=== PATIENT | female | born 1990 | race Caucasian/White ===

== ENCOUNTER → 2018-03-06 | Outpatient (CLI) | payer OTHER ==
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
== END | disposition home or self-care (01) ==
LOC: RADXRMAIN 11:52
PROVIDERS: ATTEND Emergency Medicine
DX: S60.00XA Contusion of unspecified finger without damage to nail, initial encounter (principal)

== ENCOUNTER 2021-12-02 13:05 | Emergency (ER) | payer OTHER, BC ==
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
[2021-12-02 14:38] VITALS: BP 143/85; PULSE 122; RESP 18; TEMP 98.2
[2021-12-02 15:36] LABS: Basophils # (A) 0.1 k/uL (0-0.2); Basophils % (A) 1 %; Eosinophils # (A) 0.1 k/uL (0-0.7); Eosinophils % (A) 1 %; HCT 43.7 % (34.0-46.0); HGB 14.9 gm/dL (11.4-16.0); Lymphocytes # (A) 1.6 k/uL (1.0-4.8); Lymphocytes % (A) 11 %; MCH 31.3 pg (25.0-35.0); MCHC 34.2 g/dL (31.0-37.0); MCV 91.6 fL (80.0-100.0); Mean Platelet Volume 7.1; Monocytes # (A) 0.5 k/uL (0-1.0); Monocytes % (A) 3 %; Neutrophils # (A) 11.5 k/uL (1.3-7.7); Neutrophils % (A) 84 %; Platelet Count 259 k/uL (150-450); RBC 4.77 m/uL (3.80-5.40); RDW 12.2 % (11.5-15.5); WBC 13.7 k/uL (3.8-10.6)
--- NOTE | 2021-12-02 15:43 | XR ---
EXAMINATION TYPE: XR pelvis AP view DATE OF EXAM: 12/02/2021 CLINICAL HISTORY: pain TECHNIQUE: Single view the pelvis is submitted. FINDINGS: No evidence for fracture, dislocation or bony lesion. Joint spaces are well-preserved. S I joints appear symmetric. IMPRESSION: 1. No acute fracture or dislocation seen. ICD 10 NO FRACTURE, INITIAL EVALUATION
--- NOTE | 2021-12-02 15:43 | XR ---
EXAMINATION TYPE: XR chest 1V portable DATE OF EXAM: 12/02/2021 COMPARISON: NONE HISTORY: Chest pain TECHNIQUE: Single frontal view of the chest is obtained. FINDINGS: There is no focal air space opacity, pleural effusion, or pneumothorax seen. The cardiac silhouette size is within normal limits. The osseous structures are intact. IMPRESSION: 1. No acute process.
[2021-12-02 15:46] LABS: ALT 42 U/L (4-34); AST 44 U/L (14-36); African American GFR (CKD) >90 (>60 ml/min/1.73 sqM); Alcohol <10 mg/dL; Alkaline Phosphatase 66 U/L (38-126); Anion Gap 11 mmol/L; Blood Urea Nitrogen 7 mg/dL (7-17); Calcium 9.5 mg/dL (8.4-10.2); Carbon Dioxide 25 mmol/L (22-30); Chloride 107 mmol/L (98-107); Glucose 95 mg/dL (74-99); Non-African American GFR(CKD) >90 (>60 ml/min/1.73 sqM); Potassium 3.8 mmol/L (3.5-5.1); Sodium 143 mmol/L (137-145); Total Bilirubin 0.7 mg/dL (0.2-1.3); Total Protein 8.4 g/dL (6.3-8.2)
[2021-12-02 15:47] LABS: INR 0.9 (<1.2); Partial Thromboplastin Time 23.5 sec (22.0-30.0); Prothrombin Time 10.3 sec (9.0-12.0)
[2021-12-02 15:50] LABS: Appearance,Urine Clear (Clear); Bilirubin,Urine Negative (Negative); Blood,Urine Negative (Negative); Color,Urine Colorless; Glucose,Urine (UA) Negative (Negative); Ketones,Urine Negative (Negative); Leukocyte Esterase,Urine Negative (Negative); Nitrite,Urine Negative (Negative); Protein,Urine Negative (Negative); Specific Gravity,Urine 1.002 (1.001-1.035); Urobilinogen,Urine <2.0 mg/dL (<2.0)
[2021-12-02 16:00] LABS: Amphetamine Screen,Urine Not Detected (NotDetected); Barbiturate Screen,Urine Not Detected (NotDetected); Benzodiazepines Screen,Urine Not Detected (NotDetected); Cocaine Screen,Urine Not Detected (NotDetected); Methadone Screen, Urine Not Detected (NotDetected); Opiate Screen,Urine Not Detected (NotDetected); Oxycodone Screen, Urine Not Detected (NotDetected); Phencyclidine Screen,Urine Not Detected (NotDetected); Tricyclic Antidepressant,Urine Not Detected (NotDetected); Urn Cannabinoid Scrn Not Detected (NotDetected)
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
== END 2021-12-02 16:57 | disposition home or self-care (01) ==
LOC: EC 13:05
DX: R10.30 Lower abdominal pain, unspecified (principal); V89.2XXA Person injured in unspecified motor-vehicle accident, traffic, initial encounter
CPT/HCPCS: 36415; 71045; 72170; 80053; 80306; 80320; 81003; 84484; 85025; 85610; 85730; 86850; 86900; 86901

== ENCOUNTER 2021-12-31 02:22 | Emergency (ER) | payer BC ==
[2021-12-31 02:41] VITALS: TEMP 97.9
--- NOTE | 2021-12-31 04:27 | ED ---
GI Bleed HPI - General Chief complaint: GI Bleed Stated complaint: bleeding Time Seen by Provider: 12/31/21 03:51 Source: patient Mode of arrival: ambulatory - History of Present Illness Initial comments: This patient is a 31-year-old woman who presents to have reevaluation of a hemorrhoid that has been bleeding. The patient states she was seen at an urgent care earlier and was given medication including steroid. She states that the hemorrhoid continued to bleed and she was told that if there was additional bleeding she should be reevaluated. She is not having much in way of pain. She denies symptoms of anemia. There is no abdominal pain. MD complaint: other -: hour(s) (Hemorrhoid) Quality: painless Consistency: intermittent Improves with: none Worsens with: none Context: hemorrhoids Associated Symptoms: denies other symptoms - Related Data Previous Rx's Medication Instructions Recorded Hydrocortisone Pr Cream 1 applic RECTAL BID #28 gm 12/31/21 [Proctosol-Hc 2.5%] Allergies Allergy/AdvReac Type Severity Reaction Status Date / Time No Known Allergies Allergy Verified 12/31/21 02:41 Review of Systems ROS Statement: Those systems with pertinent positive or pertinent negative responses have been documented in the HPI. ROS Other: All systems not noted in ROS Statement are negative. Constitutional: Denies: fever, chills Respiratory: Denies: cough, dyspnea Cardiovascular: Denies: chest pain, palpitations, edema Gastrointestinal: Denies: abdominal pain, vomiting, diarrhea Past Medical History Past Medical History: No Reported History History of Any Multi-Drug Resistant Organisms: None Reported Additional Past Surgical History / Comment(s): ganglion cyst removed Past Psychological History: No Psychological Hx Reported Smoking Status: Never smoker Past Alcohol Use History: None Reported Past Drug Use History: None Reported General Exam General appearance: alert, in no apparent distress Head exam: Present: atraumatic, normocephalic Eye exam: Present: normal appearance. Absent: scleral icterus, conjunctival injection Respiratory exam: Present: normal lung sounds bilaterally. Absent: respiratory distress, wheezes, rales, rhonchi, stridor Cardiovascular Exam: Present: regular rate, normal rhythm, normal heart sounds. Absent: systolic murmur, diastolic murmur, rubs, gallop GI/Abdominal exam: Present: soft. Absent: distended, tenderness, guarding, rebound, rigid, mass Rectal exam: Present: hemorrhoids. Absent: black stool, bloody stool, mass, tenderness Neurological exam: Present: alert Skin exam: Present: warm, dry, intact, normal color. Absent: rash Course Vital Signs 12/31/21 12/31/21 02:39 04:35 Temperature 97.9 F 97.9 F Pulse Rate 90 72 Respiratory 19 16 Rate Blood Pressure 136/84 113/54 O2 Sat by Pulse 98 97 Oximetry Medical Decision Making - Medical Decision Making This patient is a 31-year-old woman who presents to have evaluation of bleeding from a hemorrhoid. On the exam there is a hemorrhoid which does have an area of recent bleeding. There is clot there is no active bleeding. There is not an area of thrombosis. Discussed further treatment with patient and at this point she states she is comfortable going home to continue the topical treatment. We discussed appropriate further care and follow-up as well as return parameters. Disposition Clinical Impression: Hemorrhoids Disposition: HOME SELF-CARE Condition: Good Instructions (If sedation given, give patient instructions): Hemorrhoids (ED) Prescriptions: Hydrocortisone Pr Cream [Proctosol-Hc 2.5%] 1 applic RECTAL BID #28 gm Is patient prescribed a controlled substance at d/c from ED?: No Referrals: Davy George DO [Primary Care Provider] - 1-2 days
[2021-12-31 04:36] VITALS: BP 113/54; PULSE 72; RESP 16
== END 2021-12-31 04:37 | disposition home or self-care (01) ==
LOC: EC 02:22
DX: K64.9 Unspecified hemorrhoids (principal)
CPT/HCPCS: 99284